=== PATIENT | female | born 1960 | race Caucasian/White ===

== ENCOUNTER 2017-08-13 10:47 | Emergency (ER) | payer OTHER ==
[~2017-08-13] VITALS: Wt 81.8 kg
[2017-08-13] MEDS ORDERED: KETOROLAC 30 MG INJ IM STA (11:13)
[2017-08-13] MEDS ORDERED: NAPR-260 PO (11:23)
[2017-08-13] MEDS ORDERED: TRAM50TA2 PO (11:23)
--- NOTE | 2017-08-13 11:30 | ERD ---
ER Documentation Chief Complaint Chief Complaint r. knee pain, denies trauma HPI Is a 57-year-old female who presents to the emergency department today complaining of right knee pain for the past 6+ weeks. States that she went to a clinic [facility] and was given ibuprofen. States that she had x -rays but was told "nothing was wrong". States she does not have a regular primary care doctor. States that she has applied ice at the end of the day but mostly complains that it gets swollen and inflamed at the end of the day after walking a lot. Denies any fevers or chills, trauma. ROS All systems reviewed and are negative except as per history of present illness. Medications Home Meds Active Scripts Naproxen* (Naprosyn*) 500 Mg Tablet, 500 MG PO BID Y for PAIN AND/OR INFLAMMATION, #30 TAB Prov:STEVAN HERNÁNDEZ PA-C 08/13/17 Tramadol HCl (Tramadol HCl) 50 Mg Tablet, 50 MG PO Q4 Y for PAIN, #20 TAB Prov:STEVAN HERNÁNDEZ PA-C 08/13/17 Allergies Allergies: Coded Allergies: No Known Allergy (Unverified , 08/13/17) PMhx/Soc Medical and Surgical Hx: pt denies Medical Hx, pt denies Surgical Hx Hx Alcohol Use: No Hx Substance Use: No Hx Tobacco Use: No Smoking Status: Never smoker Physical Exam Vitals Vital Signs Date Time Temp Pulse Resp B/P Pulse Ox O2 Delivery O2 Flow Rate FiO2 08/13/17 10:50 98.0 68 20 133/63 100 Physical Exam Const: obese, NAD Head: Atraumatic Eyes: Normal Conjunctiva ENT: Normal External Ears, Nose and Mouth. Neck: Full range of motion..~ No meningismus. Resp: Clear to auscultation bilaterally Cardio: Regular rate and rhythm, no murmurs Abd: Soft, non tender, non distended. Normal bowel sounds Skin: No petechiae or rashes MSK: Knee with no obvious deformity. No significant effusion. Full active range of motion. Tenderness to palpation along medial border of patella and medial joint line. Pulses 2+. Distal neurovascularly intact. Neur: Awake and alert Psych: Normal Mood and Affect Results 24 hrs Current Medications Medications (Trade) Dose Ordered Sig/Matthew Route PRN Reason Start Time Stop Time Status Last Admin Dose Admin Ketorolac Tromethamine (Toradol) 30 mg ONCE STAT IM 08/13/17 11:13 08/13/17 11:14 DC Procedures/MDM This 57-year-old female who presents the emergency department today complaining of right knee pain that is been ongoing for the past 6+ weeks. Patient was seen in the clinic and did report taking ibuprofen with no improvement in symptoms. Patient also indicated that she had an x-ray done around that time and was told "nothing was wrong". Patient declined new x-rays here in the emergency department. She has had no trauma and she is afebrile and otherwise well-appearing have low suspicion for septic joint or gout. Low suspicion for acute fracture dislocation. Symptoms at this time appear to be chronic knee pain possibly related to degenerative changes versus internal derangement of knee. Patient was given a Toradol injection here in the emergency department. I will give her a short course of tramadol and Naprosyn for home. She was also given an Klever wrap and instructed to apply ice daily after walking for long periods of time. I also instructed the daughter that the patient would likely benefit from physical therapy and referral to aquarium specialist. I have given her a list of resources. Patient and daughter understood. At this time the patient is stable for discharge and outpatient management. Patient should follow up with their PCP in the next 1-2 days. They may return to the emergency department sooner for any persistent or worsening of symptoms. Patient understood and agreed with the plan. Departure Diagnosis: Primary Impression: Knee pain Chronicity: chronic Laterality: right Qualified Code: M25.561 - Chronic pain of right knee Condition: Fair Patient Instructions: Reducing Knee Pain and Swelling Referrals: [facility] Urgent Care 7 a.m.- 11 p.m. Every Day of the Week NO APPOINTMENT OR AUTHORIZATION NEEDED COMMUNITY CLINIC () Usted se torres hecho un examen mdico de control que le indica que no est en cher condicin que requiera tratamiento urgente en el Departamento de Emergencia. Un estudio ms profundo y el tratamiento de limon condicin pueden esperar sin ningn riesgo hasta que usted sea atendida/o en el consultorio de limon mdico o cher cl chris. Es responsabilidad suya arreglar cher tanika para el seguimiento del sary. MANEJO DE CONDICIONES NO URGENTES EN EL FUTURO 1) Si usted tiene un mdico de atencin primaria: Usted debera llamar a limon mdico de atencin primaria antes de venir al departamento de emergencia. Despus de las horas de consultorio, limon doctor o limon asociado/a est disponible por telfono. El mdico o enfermero de neal en el servicio telefnico puede asesorarle por cathy medio para atender el problema, o sary contrario se puede programar cher tanika. 2) Si usted no tiene un mdico de atencin primaria: Llame al mdico o clnica de referencia que aparece abajo jeanette las horas de consultorio para hacer cher tanika para que le vean. CLINICAS: [facility] [phone] [address] [facility] [phone] [address] [facility] [phone] [address] [facility]. [place] [phone] [facility]. [facility] [phone] [address] [facility]. [phone] [address] Additional Instructions: Llame al doctor MAANA y leti cher TANIKA PARA DENTRO DE 1-2 BARKER.Dgale a la secretaria que nosotros le instruimos hacer esta tanika.Avise o llame si limon condicin se empeora antes de la tanika. Regresa aqui si peor o no mejor. Make an appointment with your primary care doctor for referral to aquarium specialist or physical therapy. Take tramadol for severe pain otherwise take Naprosyn or Tylenol or Motrin. Use Klever wrap for compression to help decrease swelling. Apply ice daily. STEVAN HERNÁNDEZ PA-C Aug 13, 2017 11:29
--- NOTE | 2017-08-13 11:30 | ERD ---
ER Documentation Chief Complaint Chief Complaint r. knee pain, denies trauma HPI Is a 57-year-old female who presents to the emergency department today complaining of right knee pain for the past 6+ weeks. States that she went to a clinic [facility] and was given ibuprofen. States that she had x -rays but was told "nothing was wrong". States she does not have a regular primary care doctor. States that she has applied ice at the end of the day but mostly complains that it gets swollen and inflamed at the end of the day after walking a lot. Denies any fevers or chills, trauma. ROS All systems reviewed and are negative except as per history of present illness. Medications Home Meds Active Scripts Naproxen* (Naprosyn*) 500 Mg Tablet, 500 MG PO BID Y for PAIN AND/OR INFLAMMATION, #30 TAB Prov:STEVAN HERNÁNDEZ PA-C 08/13/17 Tramadol HCl (Tramadol HCl) 50 Mg Tablet, 50 MG PO Q4 Y for PAIN, #20 TAB Prov:STEVAN HERNÁNDEZ PA-C 08/13/17 Allergies Allergies: Coded Allergies: No Known Allergy (Unverified , 08/13/17) PMhx/Soc Medical and Surgical Hx: pt denies Medical Hx, pt denies Surgical Hx Hx Alcohol Use: No Hx Substance Use: No Hx Tobacco Use: No Smoking Status: Never smoker Physical Exam Vitals Vital Signs Date Time Temp Pulse Resp B/P Pulse Ox O2 Delivery O2 Flow Rate FiO2 08/13/17 10:50 98.0 68 20 133/63 100 Physical Exam Const: obese, NAD Head: Atraumatic Eyes: Normal Conjunctiva ENT: Normal External Ears, Nose and Mouth. Neck: Full range of motion..~ No meningismus. Resp: Clear to auscultation bilaterally Cardio: Regular rate and rhythm, no murmurs Abd: Soft, non tender, non distended. Normal bowel sounds Skin: No petechiae or rashes MSK: Knee with no obvious deformity. No significant effusion. Full active range of motion. Tenderness to palpation along medial border of patella and medial joint line. Pulses 2+. Distal neurovascularly intact. Neur: Awake and alert Psych: Normal Mood and Affect Results 24 hrs Current Medications Medications (Trade) Dose Ordered Sig/Matthew Route PRN Reason Start Time Stop Time Status Last Admin Dose Admin Ketorolac Tromethamine (Toradol) 30 mg ONCE STAT IM 08/13/17 11:13 08/13/17 11:14 DC Procedures/MDM This 57-year-old female who presents the emergency department today complaining of right knee pain that is been ongoing for the past 6+ weeks. Patient was seen in the clinic and did report taking ibuprofen with no improvement in symptoms. Patient also indicated that she had an x-ray done around that time and was told "nothing was wrong". Patient declined new x-rays here in the emergency department. She has had no trauma and she is afebrile and otherwise well-appearing have low suspicion for septic joint or gout. Low suspicion for acute fracture dislocation. Symptoms at this time appear to be chronic knee pain possibly related to degenerative changes versus internal derangement of knee. Patient was given a Toradol injection here in the emergency department. I will give her a short course of tramadol and Naprosyn for home. She was also given an Klever wrap and instructed to apply ice daily after walking for long periods of time. I also instructed the daughter that the patient would likely benefit from physical therapy and referral to sales support specialist. I have given her a list of resources. Patient and daughter understood. At this time the patient is stable for discharge and outpatient management. Patient should follow up with their PCP in the next 1-2 days. They may return to the emergency department sooner for any persistent or worsening of symptoms. Patient understood and agreed with the plan. Departure Diagnosis: Primary Impression: Knee pain Chronicity: chronic Laterality: right Qualified Code: M25.561 - Chronic pain of right knee Condition: Fair Patient Instructions: Reducing Knee Pain and Swelling Referrals: [facility] Urgent Care 7 a.m.- 11 p.m. Every Day of the Week NO APPOINTMENT OR AUTHORIZATION NEEDED COMMUNITY CLINIC () Usted se torres hecho un examen mdico de control que le indica que no est en cher condicin que requiera tratamiento urgente en el Departamento de Emergencia. Un estudio ms profundo y el tratamiento de limon condicin pueden esperar sin ningn riesgo hasta que usted sea atendida/o en el consultorio de limon mdico o cher cl chris. Es responsabilidad suya arreglar cher tanika para el seguimiento del sary. MANEJO DE CONDICIONES NO URGENTES EN EL FUTURO 1) Si usted tiene un mdico de atencin primaria: Usted debera llamar a limon mdico de atencin primaria antes de venir al departamento de emergencia. Despus de las horas de consultorio, limon doctor o limon asociado/a est disponible por telfono. El mdico o enfermero de neal en el servicio telefnico puede asesorarle por cathy medio para atender el problema, o sary contrario se puede programar cher tanika. 2) Si usted no tiene un mdico de atencin primaria: Llame al mdico o clnica de referencia que aparece abajo jeanette las horas de consultorio para hacer cher tanika para que le vean. CLINICAS: [facility] [phone] [address] [facility] [phone] [address] [facility]. [facility] [phone] [address] [facility]. [place] [phone] 9[address] [facility]. [facility] [phone] [facility]. [phone] [address] Additional Instructions: Llame al doctor MAANA y leti cher TANIKA PARA DENTRO DE 1-2 BARKER.Dgale a la secretaria que nosotros le instruimos hacer esta tanika.Avise o llame si limon condicin se empeora antes de la tanika. Regresa aqui si peor o no mejor. Make an appointment with your primary care doctor for referral to sales support specialist or physical therapy. Take tramadol for severe pain otherwise take Naprosyn or Tylenol or Motrin. Use Klever wrap for compression to help decrease swelling. Apply ice daily. STEVAN HERNÁNDEZ PA-C Aug 13, 2017 11:29
--- NOTE | 2017-08-13 11:30 | ERD ---
ER Documentation Chief Complaint Chief Complaint r. knee pain, denies trauma HPI Is a 57-year-old female who presents to the emergency department today complaining of right knee pain for the past 6+ weeks. States that she went to a clinic [facility] and was given ibuprofen. States that she had x -rays but was told "nothing was wrong". States she does not have a regular primary care doctor. States that she has applied ice at the end of the day but mostly complains that it gets swollen and inflamed at the end of the day after walking a lot. Denies any fevers or chills, trauma. ROS All systems reviewed and are negative except as per history of present illness. Medications Home Meds Active Scripts Naproxen* (Naprosyn*) 500 Mg Tablet, 500 MG PO BID Y for PAIN AND/OR INFLAMMATION, #30 TAB Prov:STEVAN HERNÁNDEZ PA-C 08/13/17 Tramadol HCl (Tramadol HCl) 50 Mg Tablet, 50 MG PO Q4 Y for PAIN, #20 TAB Prov:STEVAN HERNÁNDEZ PA-C 08/13/17 Allergies Allergies: Coded Allergies: No Known Allergy (Unverified , 08/13/17) PMhx/Soc Medical and Surgical Hx: pt denies Medical Hx, pt denies Surgical Hx Hx Alcohol Use: No Hx Substance Use: No Hx Tobacco Use: No Smoking Status: Never smoker Physical Exam Vitals Vital Signs Date Time Temp Pulse Resp B/P Pulse Ox O2 Delivery O2 Flow Rate FiO2 08/13/17 10:50 98.0 68 20 133/63 100 Physical Exam Const: obese, NAD Head: Atraumatic Eyes: Normal Conjunctiva ENT: Normal External Ears, Nose and Mouth. Neck: Full range of motion..~ No meningismus. Resp: Clear to auscultation bilaterally Cardio: Regular rate and rhythm, no murmurs Abd: Soft, non tender, non distended. Normal bowel sounds Skin: No petechiae or rashes MSK: Knee with no obvious deformity. No significant effusion. Full active range of motion. Tenderness to palpation along medial border of patella and medial joint line. Pulses 2+. Distal neurovascularly intact. Neur: Awake and alert Psych: Normal Mood and Affect Results 24 hrs Current Medications Medications (Trade) Dose Ordered Sig/Matthew Route PRN Reason Start Time Stop Time Status Last Admin Dose Admin Ketorolac Tromethamine (Toradol) 30 mg ONCE STAT IM 08/13/17 11:13 08/13/17 11:14 DC Procedures/MDM This 57-year-old female who presents the emergency department today complaining of right knee pain that is been ongoing for the past 6+ weeks. Patient was seen in the clinic and did report taking ibuprofen with no improvement in symptoms. Patient also indicated that she had an x-ray done around that time and was told "nothing was wrong". Patient declined new x-rays here in the emergency department. She has had no trauma and she is afebrile and otherwise well-appearing have low suspicion for septic joint or gout. Low suspicion for acute fracture dislocation. Symptoms at this time appear to be chronic knee pain possibly related to degenerative changes versus internal derangement of knee. Patient was given a Toradol injection here in the emergency department. I will give her a short course of tramadol and Naprosyn for home. She was also given an Klever wrap and instructed to apply ice daily after walking for long periods of time. I also instructed the daughter that the patient would likely benefit from physical therapy and referral to food safety field specialist. I have given her a list of resources. Patient and daughter understood. At this time the patient is stable for discharge and outpatient management. Patient should follow up with their PCP in the next 1-2 days. They may return to the emergency department sooner for any persistent or worsening of symptoms. Patient understood and agreed with the plan. Departure Diagnosis: Primary Impression: Knee pain Chronicity: chronic Laterality: right Qualified Code: M25.561 - Chronic pain of right knee Condition: Fair Patient Instructions: Reducing Knee Pain and Swelling Referrals: [facility] Urgent Care 7 a.m.- 11 p.m. Every Day of the Week NO APPOINTMENT OR AUTHORIZATION NEEDED COMMUNITY CLINIC () Usted se torres hecho un examen mdico de control que le indica que no est en cher condicin que requiera tratamiento urgente en el Departamento de Emergencia. Un estudio ms profundo y el tratamiento de limon condicin pueden esperar sin ningn riesgo hasta que usted sea atendida/o en el consultorio de limon mdico o cher cl chris. Es responsabilidad suya arreglar cher tanika para el seguimiento del sary. MANEJO DE CONDICIONES NO URGENTES EN EL FUTURO 1) Si usted tiene un mdico de atencin primaria: Usted debera llamar a limon mdico de atencin primaria antes de venir al departamento de emergencia. Despus de las horas de consultorio, limon doctor o limon asociado/a est disponible por telfono. El mdico o enfermero de neal en el servicio telefnico puede asesorarle por cathy medio para atender el problema, o sary contrario se puede programar cher tanika. 2) Si usted no tiene un mdico de atencin primaria: Llame al mdico o clnica de referencia que aparece abajo jeanette las horas de consultorio para hacer cher tanika para que le vean. CLINICAS: [facility] [phone] [address] [facility] [phone] [address] [facility]. [facility] [phone] [address] [facility]. [place] [phone] [facility]. [facility] [phone] [address] [facility]. [phone] [address] Additional Instructions: Llame al doctor MAANA y leti cher TANIKA PARA DENTRO DE 1-2 BARKER.Dgale a la secretaria que nosotros le instruimos hacer esta tanika.Avise o llame si limon condicin se empeora antes de la tanika. Regresa aqui si peor o no mejor. Make an appointment with your primary care doctor for referral to food safety field specialist or physical therapy. Take tramadol for severe pain otherwise take Naprosyn or Tylenol or Motrin. Use Klever wrap for compression to help decrease swelling. Apply ice daily. STEVAN HERNÁNDEZ PA-C Aug 13, 2017 11:29
== END 2017-08-13 12:54 | disposition home or self-care (01) ==
LOC: FTE 10:47
DX: M25.561 Pain in right knee (principal)
CPT/HCPCS: 96372; 99284; J1885